=== PATIENT | male | born 1960 | race Caucasian/White ===

== ENCOUNTER 2016-10-01 01:53 | Emergency (ER) | payer OTHER ==
--- NOTE | 2016-10-01 04:01 | ED ORDER SUMMARY ---
..... Patient: NIMESH BRAVO OrderSheet [facility] VisitID: [id number] [place] [address] 56y, M Registration Date/Time: 10/01/2016 ORDER SHEET Weight: 97.5 kg (stated) Allergies: No Known Drug Allergy GENERAL ORDERS: CBC w Diff Urgent (03:03 10/01/2016 Gene Piper) (Ack 3:05 Jimmy R.N.) (3:13 Janettenandez R.N.) CMP Urgent (03:03 10/01/2016 Gene Piper) (Ack 3:05 Jimmy R.N.) (3:13 Jimmy R.N.) PT with INR Urgent (03:03 10/01/2016 Gene Piper) (Ack 3:05 Jimmy R.N.) (3:13 Janettenandez R.N.) MEDICATION ORDERS: Zofran ODT PO 4 mg (NOW) (03:44 10/01/2016 Gene Piper) (Ack 3:44 Jimmy R.N.) (3:46 Janettenandez R.N.) IV FLUIDS: ORDER SHEET NOTES: [Electronically signed by Timbo Gomez R.N. (04:15 10/01/2016)] [Electronically signed by Gunnar Bryant Dr. (04:16 10/01/2016)] [Electronically locked/signed by Timbo Gomez R.N. (04:15 10/01/2016)]
--- NOTE | 2016-10-01 04:01 | ED NURSING NOTES ---
Clinical Report - Nurses [facility] [address] [place] [address] 10/01/2016 1:56 Patient: NIMESH BRAVO TRIAGE Triage time 02:13. Acuity: LEVEL 3. Chief Complaint: NOSEBLEED. --02:24 Timbo Gomez R.N. 02:13 10/01/16. BP: 143/83. HR: 83. RR: 16. O2 saturation: 100%. Temp: 98.5 F. Pain level now: 08/01. --02:24 Timbo Gomez R.N. Weight: 97.5 kg stated. Height/Length: 70 inches Per Patient. BMI: 30.8. --02:19 Timbo Gomez R.N. Medications Hydrocodone-Acetaminophen Oral. --02:17 Timbo Gomez R.N. Antibiotic. --02:17 Timbo Gomez R.N. Medication/allergy information source: the patient. --02: Timbo Gomez R.N. Allergies No Known Drug Allergy. --02:17 Timbo Gomez R.N. History Arrived by private vehicle. Historian: patient. ( Had previous nose injury 6 months ago (deviated septum), had surgery [facility]. Tonight noticed increased bleeding even after ice compress to his face/nose.). This started just prior to arrival. 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 SURGERY HX: ( nasal surgery). SOCIAL HX: Never smoker. --02:24 Timbo Gomez R.N. Interventions ID band on patient. To room. --02:24 Timbo Gomez R.N. PHYSICAL ASSESSMENT Ambulatory to room. GENERAL / NEURO / PSYCH: Alert. Appears in no acute distress. HEENT: Right-nare and left-nare active bleeding (nasal packing from surgery). RESPIRATORY: Respirations not labored. CVS: Capillary refill less than 2 seconds. SKIN: Skin is warm and dry. --02:25 Timbo Gomez R.N. NURSING PROGRESS NOTES Cold pack applied. Head of bed elevated. Reassurance given. Patient identifiers checked. Side rails up x 1. Bed placed in lowest position. Brakes of bed on. Patient ready for evaluation- ED physician notified. --02:25 Timbo Gomez R.N. 03:46 10/01/2016 Zofran ODT (Ondansetron) PO Oral Disintegrating Tablets 4 mg given. Allergies verified and confirmed 5 rights. --03:46 Timbo Gomez R.N. DISPOSITION / DISCHARGE Condition at departure: improved. No learning barriers present. Discharge instructions provided and reviewed with the patient. Reviewed medication(s) side effects, precautions, dosing and course information. Prescription(s) given to the patient. Reviewed referral to an ear, nose, and throat specialist (postal transportation clerk). Patient verbalized understanding. Written instructions provided in Somali. The patient was discharged home. He left the Emergency Department ambulatory and via private vehicle. Patient driving. --04:14 Timbo Gomez R.N. 04:13 10/01/16. BP: 143/79. HR: 84. RR: 16. O2 saturation: 100%. Temp: 98.4 F. Pain level now: 0/10. --04:14 Timbo Gomez R.N. Departure time: 04:14. --04:15 Timbo Gomez R.N. Locked/Released at 10/01/2016 4:15 by Timbo Gomez R.N.
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
--- NOTE | 2016-10-01 04:01 | ED NURSING NOTES ---
Clinical Report - Nurses [facility] [address] [place] [address] 10/01/2016 1:56 Patient: NIMESH BRAVO TRIAGE Triage time 02:13. Acuity: LEVEL 3. Chief Complaint: NOSEBLEED. --02:24 Timbo Gomez R.N. 02:13 10/01/16. BP: 143/83. HR: 83. RR: 16. O2 saturation: 100%. Temp: 98.5 F. Pain level now: 08/01. --02:24 Timbo Gomez R.N. Weight: 97.5 kg stated. Height/Length: 70 inches Per Patient. BMI: 30.8. --02:19 Timbo Gomez R.N. Medications Hydrocodone-Acetaminophen Oral. --02:17 Timbo Gomez R.N. Antibiotic. --02:17 Timbo Gomez R.N. Medication/allergy information source: the patient. --02: Timbo Gomez R.N. Allergies No Known Drug Allergy. --02:17 Timbo Gomez R.N. History Arrived by private vehicle. Historian: patient. ( Had previous nose injury 6 months ago (deviated septum), had surgery [facility]. Tonight noticed increased bleeding even after ice compress to his face/nose.). This started just prior to arrival. 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 SURGERY HX: ( nasal surgery). SOCIAL HX: Never smoker. --02:24 Timbo Gomez R.N. Interventions ID band on patient. To room. --02:24 Timbo Gomez R.N. PHYSICAL ASSESSMENT Ambulatory to room. GENERAL / NEURO / PSYCH: Alert. Appears in no acute distress. HEENT: Right-nare and left-nare active bleeding (nasal packing from surgery). RESPIRATORY: Respirations not labored. CVS: Capillary refill less than 2 seconds. SKIN: Skin is warm and dry. --02:25 Timbo Gomez R.N. NURSING PROGRESS NOTES Cold pack applied. Head of bed elevated. Reassurance given. Patient identifiers checked. Side rails up x 1. Bed placed in lowest position. Brakes of bed on. Patient ready for evaluation- ED physician notified. --02:25 Timbo Gomez R.N. 03:46 10/01/2016 Zofran ODT (Ondansetron) PO Oral Disintegrating Tablets 4 mg given. Allergies verified and confirmed 5 rights. --03:46 Timbo Gomez R.N. DISPOSITION / DISCHARGE Condition at departure: improved. No learning barriers present. Discharge instructions provided and reviewed with the patient. Reviewed medication(s) side effects, precautions, dosing and course information. Prescription(s) given to the patient. Reviewed referral to an ear, nose, and throat specialist (erecting crane operator). Patient verbalized understanding. Written instructions provided in Wallisian. The patient was discharged home. He left the Emergency Department ambulatory and via private vehicle. Patient driving. --04:14 Timbo Gomez R.N. 04:13 10/01/16. BP: 143/79. HR: 84. RR: 16. O2 saturation: 100%. Temp: 98.4 F. Pain level now: 0/10. --04:14 Timbo Gomez R.N. Departure time: 04:14. --04:15 Timbo Gomez R.N. Locked/Released at 10/01/2016 4:15 by Timbo Gomez R.N.
--- NOTE | 2016-10-01 04:01 | ED ORDER SUMMARY ---
..... Patient: NIMESH BRAVO OrderSheet [facility] VisitID: [id number] [place] [address] 56y, M Registration Date/Time: 10/01/2016 ORDER SHEET Weight: 97.5 kg (stated) Allergies: No Known Drug Allergy GENERAL ORDERS: CBC w Diff Urgent (03:03 10/01/2016 Gene Piper) (Ack 3:05 Jimmy R.N.) (3:13 Janettenandez R.N.) CMP Urgent (03:03 10/01/2016 Gene Piper) (Ack 3:05 Jimmy R.N.) (3:13 Jimmy R.N.) PT with INR Urgent (03:03 10/01/2016 Gene Piper) (Ack 3:05 Jimmy R.N.) (3:13 Janettenandez R.N.) MEDICATION ORDERS: Zofran ODT PO 4 mg (NOW) (03:44 10/01/2016 Gene Piper) (Ack 3:44 Jimmy R.N.) (3:46 Janettenandez R.N.) IV FLUIDS: ORDER SHEET NOTES: [Electronically signed by Timbo Gomez R.N. (04:15 10/01/2016)] [Electronically signed by Gunnar Bryant Dr. (04:16 10/01/2016)] [Electronically locked/signed by Timbo Gomez R.N. (04:15 10/01/2016)]
--- NOTE | 2016-10-01 04:16 | ED MAR SUMMARY ---
..... Medication Administration Record [facility] [address] [place] [address] Patient: NIMESH BRAVO Visit ID: [id number] 56y, M Weight: 97.5 kg Height/Length: 70 in BMI: 30.8 ALLERGIES: No Known Drug Allergy Given 03:46 10/01/2016 Timbo Gomez, RMehulNMehul Medication Administered: ZOFRAN ODT [PO] (ONDANSETRON), Dose: 4 mg Oral Disintegrating Tablets PO. Medication Ordered: Zofran ODT PO 4 mg (NOW).
--- NOTE | 2016-10-01 04:16 | ED DISCHARGE INSTRUCTIONS ---
Patient: NIMESH BRAVO General Instructions [facility] VisitID: [id number] [place] [address] 56y, M Registration Date/Time: 10/01/2016 Acute major epistaxis (post-surgical). 10/01/2016 02:13 BP: 143/83. HR: 83. RR: 16. O2 saturation: 100%. Temp: 98.5 F. Pain level now: 08/01. Moderate nausea (acute). Hypertensive. Oxygen saturation normal. Essential hypertension. INSTRUCTIONS Warnings: GENERAL WARNINGS: Return or contact your physician immediately if your condition worsens or changes unexpectedly, if not improving as expected, or if other problems arise. Specifically return if pain, vomiting, bleeding, breathing difficulty or fever. Your Current Medications: CONTINUE TAKING THE FOLLOWING MEDICATIONS: Antibiotic*. Hydrocodone-Acetaminophen Oral. Prescription Medications: Zofran (orally disintegrating tablets) 4 mg: take 1 orally every 8 hours as needed for nausea and vomiting. Dispense ten (10). No refill. Substitution is permissible. Follow-up: Return to the emergency department as needed. Follow up with your doctor in three. Reason for referral: recheck today's concerns. Summary of care provided to patient via paper. Screening today revealed the patient's blood pressure to be in the hypertensive range. The patient should follow up with a primary care provider for blood pressure management. Understanding of the discharge instructions verbalized by patient. ADDITIONAL INFORMATION Nosebleed [Adult] Bleeding from the nose most commonly occurs due to injury or drying and cracking of the inner lining of the nose. This can occur during a "common cold," "hay fever" attack, a very hot day, or from dry air in the winter. High blood pressure and hardening of the arteries (atherosclerosis) may also cause nosebleeds. If the bleeding site is found, it may be treated with a chemical or heat or electricity to cause a blood clot to form (cauterized). If the bleeding continues after cautery or if the bleeding site cannot be found, a packing may be placed in your nose to apply pressure and stop the bleeding. The packing may be made of gauze or sponge. A small balloon catheter is sometimes used. These need to be removed by your doctor. Some types of packing dissolve on their own. Home Care: If a packing was put in your nose, unless told otherwise, do not pull on it or try to remove it yourself. You will be given an appointment to have it removed. You may also have been given antibiotics to prevent a sinus infection. If so, complete all the medicine. Do not blow your nose for 12 hours after the bleeding stops. This will allow a strong blood clot to form. Do not pick your nose. This may restart bleeding. Avoid alcohol and hot liquids for the next two days. Alcohol or hot liquids in your mouth can dilate blood vessels in your nose and cause bleeding to start again. Do not take ibuprofen (Advil, Motrin), naprosyn (Aleve) or aspirin-containing medicines since these thin the blood and may promote nose bleeding. You may take Tylenol (acetaminophen) for pain, unless another pain medicine was prescribed. If the bleeding starts again, sit up and lean forward to prevent swallowing blood. Pinch your nose tightly for exactly 5 minutes (watch the clock). If bleeding is not controlled, continue to pinch and call your doctor or return to this facility. If high blood pressure was a cause for your nosebleed, have your blood pressure checked again tomorrow. If you have a "cold" or "hay fever" or dry nasal membranes, lubricate the nasal passages by applying a small amount of Vaseline inside the nose with a Q-tip twice a day (morning and night). Avoid overheating your home, which can dry the air and worsen your condition. Follow Up with your doctor as advised for packing removal. Nasal packing should be rechecked or removed within 2-3 days. Get Prompt Medical Attention if any of the following occur: Another nosebleed that you cannot control Dizziness, weakness or fainting Fever of 100.4F (38C) or higher, or as directed by your healthcare provider Headache Sinus or facial pain Shortness of breath or trouble breathing High Blood Pressure -- To Be Confirmed [No Tx] Your blood pressure was higher today than normal. Sometimes anxiety or pain can cause a temporary rise in blood pressure that later returns to normal. If your blood pressure is high on one measurement, this does not mean that you have hypertension (a chronic illness). However, you must have your blood pressure measured again within the next few days to find out if its still high. A normal blood pressure is 120/80 or less. The first (top) number is the "systolic" pressure. The second (bottom) number is the "diastolic" pressure. Hypertension exists when either the top number is 140 or higher, OR the bottom number is 90 or higher on repeated measurements. Blood pressure in the range of 120-140 (systolic) or 80-89 (diastolic) is considered "pre-hypertension". This means your are at risk for getting hypertension. You should have regular blood pressure checks to be sure your blood pressure is not rising. Home Care: Measure your blood pressure on 3 different days and write down the results. This can be done at your doctor's office or this facility. Some pharmacies and grocery stores offer automated blood pressure machines for your use. Follow Up: If your blood pressure is "high" (over 120/80) on 2 out of 3 days, you will need to follow up with your doctor for further evaluation and treatment. DO NOT PUT THIS OFF! Untreated high blood pressure increases the risk for heart attack, also known as acute myocardial infarction, or AMI, and stroke. It is a treatable condition. Get Prompt Medical Attention if any of the following occur: Chest pain or shortness of breath Severe headache Throbbing or rushing sound in the ears Nosebleed Sudden severe abdominal pain Extreme drowsiness, confusion or fainting Dizziness or vertigo (dizziness with spinning sensation) Weakness of an arm or leg or one side of the face Difficulty with speech or vision Ondansetron Oral disintegrating tablet What is this medicine? ONDANSETRON (on BHAVYA se román) is used to treat nausea and vomiting caused by chemotherapy. It is also used to prevent or treat nausea and vomiting after surgery. How should I use this medicine? These tablets are made to dissolve in the mouth. Do not try to push the tablet through the foil backing. With dry hands, peel away the foil backing and gently remove the tablet. Place the tablet in the mouth and allow it to dissolve, then swallow. While you may take these tablets with water, it is not necessary to do so. Talk to your table games shift manager regarding the use of this medicine in children. Special care may be needed. What side effects may I notice from receiving this medicine? Side effects that you should report to your doctor or health hemodialysis patient care specialist as soon as possible: allergic reactions like skin rash, itching or hives, swelling of the face, lips, or tongue breathing problems dizziness fast or irregular heartbeat feeling faint or lightheaded, falls fever and chills swelling of the hands and feet tightness in the chest Side effects that usually do not require medical attention (report to your doctor or health hemodialysis patient care specialist if they continue or are bothersome): constipation or diarrhea headache What may interact with this medicine? Do not take this medicine with any of the following medications: -apomorphine -cisapride -dofetilide -dronedarone -pimozide -thioridazine -ziprasidone This medicine may also interact with the following medications: -carbamazepine -phenytoin -rifampicin -tramadol -other medicines that prolong the QT interval (cause an abnormal heart rhythm) What if I miss a dose? If you miss a dose, take it as soon as you can. If it is almost time for your next dose, take only that dose. Do not take double or extra doses. Where should I keep my medicine? Keep out of the reach of children. Store between 2 and 30 degrees C (36 and 86 degrees F). Throw away any unused medicine after the expiration date. What should I tell my health care provider before I take this medicine? They need to know if you have any of these conditions: heart disease history of irregular heartbeat liver disease low levels of magnesium or potassium in the blood an unusual or allergic reaction to ondansetron, granisetron, other medicines, foods, dyes, or preservatives or trying to get breast-feeding What should I watch for while using this medicine? Check with your doctor or health hemodialysis patient care specialist as soon as you can if you have any sign of an allergic reaction. You have been given the following additional information: Epistaxis (Adult) Hypertension, To Be Confirmed Ondansetron Oral disintegrating tablet (Electronically signed by Gunnar Bryant Dr. 10/01/2016 4:16)
--- NOTE | 2016-10-01 04:16 | ED MED RECONCILIATION SUMMARY ---
Patient: NIMESH BRAVO Medication Reconciliation Report [facility] VisitID: [id number] [address] [place] [address] 56y, M Registration Date/Time: 10/01/2016 Weight: 97.5 kg Height/Length: 70 in. BMI: 30.8 ALLERGIES: No Known Drug Allergy The patient's Home Medications are listed below: CONTINUE TAKING THE FOLLOWING MEDICATIONS: Antibiotic Hydrocodone-Acetaminophen Oral The source(s) of the original Home Medication information: patient The following Medications were given to the patient in the Emergency Department: Zofran ODT [PO] PO 4 mg, administered: 10/01/2016 3:46:00 AM The following Medications were prescribed to the patient: Zofran (orally disintegrating tablets) 4 mg: take 1 orally every 8 hours as needed for nausea and vomiting. Dispense ten (10). No refill. Substitution is permissible. -- Gunnar Bryant Dr.
--- NOTE | 2016-10-01 04:16 | ED MED RECONCILIATION SUMMARY ---
Patient: NIMESH BRAVO Medication Reconciliation Report [facility] VisitID: [id number] [address] [place] [address] 56y, M Registration Date/Time: 10/01/2016 Weight: 97.5 kg Height/Length: 70 in. BMI: 30.8 ALLERGIES: No Known Drug Allergy The patient's Home Medications are listed below: CONTINUE TAKING THE FOLLOWING MEDICATIONS: Antibiotic Hydrocodone-Acetaminophen Oral The source(s) of the original Home Medication information: patient The following Medications were given to the patient in the Emergency Department: Zofran ODT [PO] PO 4 mg, administered: 10/01/2016 3:46:00 AM The following Medications were prescribed to the patient: Zofran (orally disintegrating tablets) 4 mg: take 1 orally every 8 hours as needed for nausea and vomiting. Dispense ten (10). No refill. Substitution is permissible. -- Gunnar Bryant Dr.
--- NOTE | 2016-10-01 04:16 | ED MAR SUMMARY ---
..... Medication Administration Record [facility] [address] [place] [address] Patient: NIMESH BRAVO Visit ID: [id number] 56y, M Weight: 97.5 kg Height/Length: 70 in BMI: 30.8 ALLERGIES: No Known Drug Allergy Given 03:46 10/01/2016 Timbo Gomez, RMehulNMehul Medication Administered: ZOFRAN ODT [PO] (ONDANSETRON), Dose: 4 mg Oral Disintegrating Tablets PO. Medication Ordered: Zofran ODT PO 4 mg (NOW).
== END 2016-10-01 04:09 | disposition home or self-care (01) ==
LOC: ED SRH 01:53
DX: R04.0 Epistaxis (principal); I10 Essential (primary) hypertension; R11.0 Nausea; Z79.891 Long term (current) use of opiate analgesic; Z79.2 Long term (current) use of antibiotics
CPT/HCPCS: 90100; 94060; 95059